=== PATIENT | female | born 1950 | race African-American/Black ===

== ENCOUNTER 2019-08-14 10:49 | Emergency (ER) | payer MEDICARE, MEDICAID ==
[~2019-08-14] VITALS: Ht 162.6 cm; Wt 59.0 kg
[2019-08-14 11:00] VITALS: BP 137/87
--- NOTE | 2019-08-14 11:00 | NUR ---
ED Nurse Note: PT CAME IN DUE TO ATIVAN WITHDRAWAL SINCE LAST SUNDAY. PT C/O TREMORS AND N/V. PT IS IN REFLECTION PROGRAM/MENTAL HEALTH PROGRAM.
[2019-08-14] MEDS ORDERED: LORazepam 1mg tab ORAL ONE (11:30)
--- NOTE | 2019-08-14 12:30 | NUR ---
ED Nurse Note: Pt still on bed, on stable condition. VSS; no signs of any acute distress. ERMD at bedside.
[2019-08-14] MEDS ORDERED: ATIVAN0.5 MG ORAL (12:33)
--- NOTE | 2019-08-14 12:34 | Emergency Room Report ---
History of Present Illness General Chief Complaint: General Complaint Source: Patient Present Illness HPI Disclaimer: Please note that this report is being documented using [employer] technology. This can lead to erroneous entry secondary to incorrect interpretation by the dictating instrument. HPI: 61-year-old female history anxiety presents for evaluation of anxiety and tremulousness. Patient had been taking 0.5 mg of Ativan 4 times daily to treat her anxiety. Apparently, the family discovered that she was only supposed to be taking 0.5 mg twice a day as prescribed by her mental health provider, Dr. Johnson. They tried to cut her back over the weekend and she missed her doses on Sunday and Sunday. She became increasingly more tremulous and reports anxiety. She denies any chest pain but does report palpitations. Denies any shortness of breath, nausea, vomiting or other symptoms at this time. She tried to follow-up with Dr. Johnson however he is out of town for the holiday week. His office referred him to the emergency department. No other complaints at this time. PMH: Anxiety PSH: Denies Allergies: Keflex Social Hx: Denies drug or alcohol abuse Allergies: Coded Allergies: CEPHALEXIN (Verified Allergy, Unknown, 08/14/19) Patient History Now: No Nursing Documentation-PMH Past Medical History: No History, Except For Hx Hypertension: Yes Review of Systems All Other Systems: negative except mentioned in HPI Physical Exam Vital Signs Date Time Temp Pulse Resp B/P (MAP) Pulse Ox O2 Delivery O2 Flow Rate FiO2 08/14/19 10:58 97.9 131 18 137/87 (104) 97 Room Air General: Awake and alert, tremulous, anxious appearing HEENT: NC/AT. EOMI. Cardiovascular: RRR. S1 and S2 normal. No murmur appreciated Resp: Normal work of breathing. No cough, wheezing or crackles appreciated Abdomen: Abdomen is soft, nondistended. Nontender Skin: Intact. No abrasions, laceration or rash over the exposed skin MSK: Normal tone and bulk. Moving all extremities. No obvious deformity. Neuro: Awake and alert. Mentating appropriately. Mild tremors in the extremities Medical Decision Making Diagnostic Impression: Primary Impression: Anxiety Additional Impression: Benzodiazepine withdrawal ER Course Is a 69-year-old female presenting for evaluation of anxiety and tremulousness in the setting of recently reducing her benzodiazepine dose and missing several doses. Appears to be in benzodiazepine withdrawal, though mild at this time. EKG was performed showing mild tachycardia but no evidence of ischemia. The patient was given Ativan in the emergency department and monitored for improvement. After receiving her Ativan her symptoms resolved completely. Review of her cures report shows the patient has been steadily prescribed 0.5 mg tablets of Ativan by Dr. Johnson. Last fill was 07/07. We will give her 1 weeks of Ativan while her physician is on vacation. She can follow-up with him at their scheduled appointment when he returns. Discussed reasons to return to the emergency department. Understands agrees with this treatment plan. EKG Diagnostic Results EKG Time: 11:10 Rate: tachycardiac Rhythm: NSR ST Segments: no acute changes Other Impression Sinus tachycardia, left axis deviation, normal intervals, no ST segment changes. Rhythm Strip Diag. Results Rhythm Strip Time: 11:10 EP Interpretation: yes Rate: 100 Rhythm: NSR, no PVC's, no ectopy Last Vital Signs Date Time Temp Pulse Resp B/P (MAP) Pulse Ox O2 Delivery O2 Flow Rate FiO2 08/14/19 11:00 97.9 115 18 137/87 97 Room Air Disposition: HOME, SELF-CARE Condition: Stable Scripts Lorazepam* (ATIVAN*) 0.5 Mg Tablet 0.5 MG ORAL BID for 7 Days, #20 TAB Prov: Farhat Bell MD 08/14/19 Referrals: [facility] - Peds ER - Patient Instructions: Benzodiazepine Withdrawal Additional Instructions: Please follow-up with your primary care doctor and your mental health counselor to discuss today's emergency department visit and your current medication dosages. We will refill a small course of your Ativan until you can see Dr. Bower. Return with any new or worsening symptoms. Farhat Bell MD Aug 14, 2019 12:34
[2019-08-14 12:48] VITALS: BP 134/84
--- NOTE | 2019-08-14 12:48 | NUR ---
ER DISCHARGE NOTE: Patient is cleared to be discharged per ERMD, pt is aox4, on room air, with stable vital signs. pt was given dc and prescription instructions, pt was able to verbalize understanding, pt id band removbed. pt is able to ambulate with steady gait.
== END 2019-08-14 12:48 | disposition home or self-care (01) ==
LOC: EMR 11:30
DX: F13.239 Sedative, hypnotic or anxiolytic dependence with withdrawal, unspecified (principal); F41.9 Anxiety disorder, unspecified; I10 Essential (primary) hypertension; Z88.1 Allergy status to other antibiotic agents
CPT/HCPCS: 99283